=== PATIENT | female | born 1985 | race Caucasian/White ===

== ENCOUNTER → 2016-07-09 | Outpatient (CLI) | payer BC ==
--- NOTE | 2016-07-09 15:29 | REP ---
Obstetric sonography: Limited study. History: Placental location. History of placenta previa. Prior study done at [facility]. No prior imaging available. Findings: Limited obstetric sonography confirms a viable single intrauterine gestation in a cephalic lie. heart rate is recorded at 147 beats per minute. Maternal cervical length is 3.2 cm measured transvaginally. No funneling is seen. No evidence of placenta previa is seen. Placenta is posterior fundal. Signed by Nick Aggarwal MD 07/09/2016 05:09 P
== END ==
LOC: M SMT 14:07
PROVIDERS: ATTEND Advanced Practice Midwife
DX: O44.00 Complete placenta previa NOS or without hemorrhage, unspecified trimester (principal); Z3A.30 30 weeks gestation of pregnancy
CPT/HCPCS: 36415; 76817; 84439; 84443; 86803; 86850; 86900; 86901; 87086; 87491; 87591; J2790

== ENCOUNTER → 2016-07-16 | Outpatient (REF) | payer BC | LOC: M LAB REF 16:57 | PROVIDERS: ATTEND Specialist | DX: Z34.83 Encounter for supervision of other normal pregnancy, third trimester (principal) ==

== ENCOUNTER → 2016-08-15 | Outpatient (CLI) | payer BC ==
[~2016-08-15] MED LIST: ACET50TA PO; LEVO100T5 PO; MOTR200T44 PO; PRENTAB55 PO
[2016-08-15 18:09] LABS: FREE T4 1.19 NG/DL (0.76-1.46)
== END ==
LOC: M SMT 14:18
PROVIDERS: ATTEND Advanced Practice Midwife
DX: E03.9 Hypothyroidism, unspecified (principal)

== ENCOUNTER → 2016-09-03 | Outpatient (CLI) | payer BC ==
[2016-09-03 18:08] LABS: MEAN CORPUSCULAR HEMOGLOBIN 31.2 pg (27.0-33.0); MEAN CORPUSCULAR HGB CONC 33.9 g/dl (32.0-36.5); MEAN CORPUSCULAR VOLUME 91.9 fl (80.0-96.0); RED CELL DISTRIBUTION WIDTH 13.6 % (11.5-14.5); WHITE BLOOD COUNT 13.3 K/mm3 (4.0-10.0)
[2016-09-03 18:18] LABS: ALBUMIN 2.8 GM/DL (3.2-5.2); ALBUMIN/GLOBULIN RATIO 0.74 (1.00-1.93); ALKALINE PHOSPHATASE 141 U/L (45-117); ALT/SGPT 18 U/L (12-78); ANION GAP 11 MEQ/L (8-16); AST/SGOT 19 U/L (15-37); BILIRUBIN,TOTAL 0.9 MG/DL (0.2-1.0); BLOOD UREA NITROGEN 16 MG/DL (7-18); CALCIUM LEVEL 8.3 MG/DL (8.5-10.1); CARBON DIOXIDE LEVEL 22 MEQ/L (21-32); CHLORIDE LEVEL 103 MEQ/L (98-107); CREATININE FOR GFR 0.56 MG/DL (0.55-1.02); GLOMERULAR FILTRATION RATE > 60.0 (>60); GLUCOSE, FASTING 81 MG/DL (70-105); POTASSIUM SERUM 3.9 MEQ/L (3.5-5.1); SODIUM LEVEL 136 MEQ/L (136-145); TOTAL PROTEIN 6.6 GM/DL (6.4-8.2); URIC ACID 4.3 MG/DL (2.6-6.0)
== END ==
LOC: M SMT 11:04
PROVIDERS: ATTEND Obstetrics & Gynecology
DX: Z36 Encounter for antenatal screening of mother (principal)

== ENCOUNTER 2016-09-09 22:10 | Inpatient (IN) | payer BC ==
[2016-09-09] MEDS ORDERED: LEVO100T5 PO (22:23)
[2016-09-09 23:26] VITALS: BP 129/81
[2016-09-09] MEDS ORDERED: DIBUCAINE 1% OINTMENT 30GM TOP PRN (23:30)
[2016-09-09] MEDS ORDERED: IBUPROFEN 800 MG TAB PO PRN (23:30)
[2016-09-09] MEDS ORDERED: ANUSOL HC CREAM 30GM TOP PRN (23:30)
[2016-09-09] MEDS ORDERED: MEASLES,MUMPS,RUBELLA VACCINE INJ (MMR-II) (90707) SC SCH (23:30)
[2016-09-09] MEDS ORDERED: ACETAMINOPHEN 500 MG TAB PO PRN (23:30)
[2016-09-09] MEDS ORDERED: DOCUSATE SODIUM 100 MG CAP PO PRN (23:30)
[2016-09-09] MEDS ORDERED: METHYLERGONOVINE MALEATE 0.2 MG TAB PO PRN (23:30)
[2016-09-09] MEDS ORDERED: RHOGAM 300 MCG (1500 IU) INJ (J2790) IM SCH (23:30)
[2016-09-09] MEDS ORDERED: OXYTOCIN INJ 10 UNITS/ML VIAL (J2590) IM ONE (23:30)
[2016-09-09] MEDS ORDERED: MOM 30ML SUSPENSION UDC PO PRN (23:30)
[2016-09-09 23:41] VITALS: BP 130/81
[2016-09-09 23:56] VITALS: BP 127/79
[2016-09-10 00:11] VITALS: BP 129/80
[2016-09-10 00:26] VITALS: BP 149/71
[2016-09-10 00:41] VITALS: BP 134/65
[2016-09-10 01:15] VITALS: BP 125/77
[2016-09-10 01:20] LABS: MEAN CORPUSCULAR HEMOGLOBIN 31.5 pg (27.0-33.0); MEAN CORPUSCULAR HGB CONC 34.7 g/dl (32.0-36.5); MEAN CORPUSCULAR VOLUME 90.7 fl (80.0-96.0); RED CELL DISTRIBUTION WIDTH 13.4 % (11.5-14.5)
[2016-09-10 06:00] VITALS: BP 113/59
[2016-09-10] MEDS: LEVOTHYROXINE 100MCG TABLET (0.1MG) PO SCH (06:00)
[2016-09-10] MEDS: PRENATAL VITAMINS CHEWABLE TABLET PO SCH (10:22)
--- NOTE | 2016-09-10 11:31 | HPE ---
DATE OF ADMISSION: 09/09/2016 31-year-old 2, para 1-0-0-1, estimated date of delivery 09/13/2016 presents at 39 weeks 3 days with reports of onset of strong regular contractions at 1730 hours, spontaneous rupture of membranes clear fluid en route at 2045 hours. Reports bloody show and good movement. Last normal menstrual period 12/08/2015 for ELEONORA 09/13/2016. Sonogram at 6 weeks confirmed date of 09/13/2016. Anatomy scan within normal limits except for placenta previa that later resolved. [facility]red to [facility] at 28 weeks. OBSTETRICAL HISTORY: March 2014 normal spontaneous vaginal viable male at 39 weeks, 8 pounds 7 ounces. ALLERGIES: She has no known drug allergies. MEDICAL-SURGICAL: Hypothyroidism, remote history of depression, and wisdom tooth extraction. FAMILY HISTORY: Hypertension. Her son was born with a with a ventricular septal defect and a bicuspid aortic valve. SOCIAL HISTORY: . Father of the baby is supportive. Denies tobacco, alcohol, drugs or abuse. OBJECTIVE: Prepregnancy weight 153, total weight gain 37 pounds, A negative antibody negative, received RhoGAM. Pap within normal limits. Rubella immune. VDRL, hep B, hep C, HIV, gonorrhea, Chlamydia all negative. 1-hour glucose 121. Group B strep is negative. Vital signs are stable. She is very uncomfortable, breathing with contractions. Contractions are 2-3 minutes apart, firm times 60 seconds. heart is 145 with moderate variability and accelerations. Clear fluid is draining per vagina. Sterile vaginal exam upon arrival 9 cm, 100% and zero station and cephalic. ASSESSMENT Multiparous at term, active labor with imminent delivery, reassuring maternal and status. PLAN Admit. Anticipate normal spontaneous vaginal .
--- NOTE | 2016-09-10 14:52 | DN ---
DATE: 09/09/2016 Onset of regular contractions at 1730 hours. Spontaneous rupture of membranes, clear fluid at 2045 hours. Spontaneous bearing down efforts. Viable male delivered GABBY through tight nuchal cord at 2307 hours. Spontaneous respirations with stimulation. Transitioned on maternal abdomen for a minute and cord doubly clamped and cut for further evaluation on the warmer. scores were 7 and 9. Placenta Carrillo intact with three-vessel cord at 2312 hours. Fundus firmed with massage and intramuscular Pitocin. Perineum is intact. Estimated blood loss 100 mL. Infant weight 3740 grams, 8 pounds 4 ounces. Sponge, sharp and instrument count correct.
[2016-09-10 18:30] VITALS: BP 124/81
[2016-09-11] MEDS: LEVOTHYROXINE 100MCG TABLET (0.1MG) PO SCH (05:38)
[2016-09-11 06:00] VITALS: BP 125/73
[2016-09-11] MEDS ORDERED: MOTR200T44 PO (09:36)
[2016-09-11] MEDS ORDERED: ACET50TA PO (09:36)
[2016-09-11] MEDS ORDERED: PRENTAB55 PO (09:36)
[2016-09-11 09:43] LABS: HBSAG L&D NEGATIVE (NEGATIVE)
[2016-09-11] MEDS: PRENATAL VITAMINS CHEWABLE TABLET PO SCH (10:11)
== END 2016-09-11 15:15 | disposition home or self-care (01) | DRG 560 ==
LOC: M LDO 22:10 → M LDI 22:20 → M OBS 09-10 01:15
PROVIDERS: ADMIT Advanced Practice Midwife; ATTEND Advanced Practice Midwife
PROC: 10E0XZZ Delivery of Products of Conception, External Approach (ICD-10-PCS; principal; 2016-09-09)
DX: O99.284 Endocrine, nutritional and metabolic diseases complicating childbirth (principal); E03.9 Hypothyroidism, unspecified; O69.2XX0 Labor and delivery complicated by other cord entanglement, with compression, not applicable or unspecified; Z37.0 Single live birth; Z3A.39 39 weeks gestation of pregnancy; Z82.49 Family history of ischemic heart disease and other diseases of the circulatory system; Z82.79 Family history of other congenital malformations, deformations and chromosomal abnormalities; Z79.899 Other long term (current) drug therapy

== ENCOUNTER → 2016-10-24 | Outpatient (CLI) | payer BC ==
[2016-10-24 14:50] LABS: THYROXINE (T4) 13.9 UG/DL (4.5-12.0)
== END ==
LOC: M SMT 10:34
PROVIDERS: ATTEND Advanced Practice Midwife
DX: E03.9 Hypothyroidism, unspecified (principal)

== ENCOUNTER → 2021-06-25 | Outpatient (REF) | payer BC ==
[~2021-06-25] MED LIST changes: -ACET50TA PO; +MAPA500T2 PO
[2021-06-25 16:37] LABS: APPEARANCE, URINE CLEAR (CLEAR); BACTERIA, URINE AUTO NEGATIVE (NEGATIVE); BILIRUBIN, URINE AUTO NEGATIVE (NEGATIVE); BLOOD, URINE BLOOD NEGATIVE (NEGATIVE); COLOR, URINE STRAW (YELLOW); GLUCOSE, URINE (UA) AUTO NEGATIVE (NEGATIVE); KETONE, URINE AUTO NEGATIVE (NEGATIVE); LEUKOCYTE ESTERASE, URINE AUTO NEGATIVE (NEGATIVE); NITRITE, URINE AUTO NEGATIVE (NEGATIVE); PROTEIN, URINE AUTO NEGATIVE (NEGATIVE); RBC, URINE AUTO 0 /HPF (0-3); SPECIFIC GRAVITY URINE AUTO 1.008 (1.002-1.035); SQUAMOUS EPITHELIAL CELL UR AU 0 /HPF (0-6); UROBILINOGEN, URINE AUTO 0.2 mg/dL (0.0-2.0); WBC, URINE AUTO 0 /HPF (0-3)
== END ==
LOC: M LAB REF 16:16
PROVIDERS: ATTEND Obstetrics & Gynecology
DX: N39.3 Stress incontinence (female) (male) (principal)